=== PATIENT | female | born 2000 | race Two or more races ===

== ENCOUNTER 2023-05-18 07:43 | Outpatient (CLI) | payer OTHER ==
[~2023-05-18 07:43] MED LIST: CONCERTA18 MG/BOTT
== END 2023-05-18 07:59 | disposition home or self-care (01) ==
LOC: SONOGRAMA 07:43
PROVIDERS: ATTEND General Practice
DX: R05.1 Acute cough (principal); Z13.89 Encounter for screening for other disorder; R59.0 Localized enlarged lymph nodes; H61.20 Impacted cerumen, unspecified ear; R22.1 Localized swelling, mass and lump, neck